=== PATIENT | male | born 1960 | race Caucasian/White ===

== ENCOUNTER 2021-07-16 19:38 | Emergency (ER) | payer SELFPAY ==
[2021-07-16] VITALS (28 sets, daily range): BP systolic 125–154; BP diastolic 66–94; PULSE 59–81; RESP 12–23; TEMP 36.6–37; O2SAT 93–100
--- NOTE | ~2021-07-16 | CT_ITS ---
EXAMINATION: CT BRAIN W/O DATE: 07/16/2021 19:57 INDICATION: Dizziness TECHNIQUE: Computed tomography (CT) of the head was performed without intravenous contrast. The dose- length product was 605.33 mGy-cm. Automated exposure control and iterative reconstruction technique w ere employed. COMPARISON: No prior studies for comparison. FINDINGS: Normal brain parenchymal volume for age. Normal smalls-white differentiation. No acute intrac ranial hemorrhage, infarction, mass or mass effect. No ventriculomegaly or midline shift. Midline sagittal images demonstrate a normal corpus callosum, c raniovertebral junction and sella turcica. Basilar cisterns are patent. Paranasal sinuses and mastoids are pneumatized. No depressed skull fractures. IMPRESSION: 1. No acute intracranial abnormality. Reviewed, dictated and finalized at location A.
--- NOTE | 2021-07-16 19:08 | ECG_ITS ---
Measurements Intervals [place] Rate: 67 P: 62 NM: 189 QRS: -27 QRSD: 121 T: 59 QT: 435 QTc: 460 Interpretive Statements SINUS RHYTHM POSSIBLE LEFT ATRIAL ENLARGEMENT RIGHT BUNDLE BRANCH BLOCK BASELINE ARTIFACT- II, III, AVR, AVF, V1-V6 ABNORMAL ECG Electronically Signed On 07-17-2021 7:46:55 CDT by Jose Lara D.O.
--- NOTE | 2021-07-16 19:20 | PC.NURSE ---
Pt reports at approx 6pm or 630 pm he was driving, and suddenly felt dizzy. c/o bilat. hand/arm numbness and left leg numbness, along with slurred speech which lasted approx 10 min. currently NO deficits noted, speech clear. all extremities independently moving without numbness/weakness/tingling. a/o x 4. reports last saw doctor 40 years ago except for when he had kidney stones approx 6 months ago.
[2021-07-16 20:07] LABS: Basophils Absolute Auto 0.1 K/mm3 (0.0-0.1); Basophils Percent Auto 0.6 % (0.2-1.2); Eosinophils Absolute Auto 0.2 K/mm3 (0-0.3); Hematocrit 45.5 % (42.0-52.0); Hemoglobin 15.1 g/dL (14.0-18.0); Immature Granulocyte Absolute 0.04 K/mm3 (0.00-0.031); Immature Granulocyte Percent A 0.4 % (0-0.5); Lymphocytes Absolute Auto 1.93 K/mm3 (0.9-3.2); Lymphocytes Percent Auto 17.9 % (18.3-44.2); Mean Corpuscular HGB Conc 33.2 g/dl (32-36); Mean Corpuscular Hemoglobin 29.5 pg (26-34); Mean Platelet Volume 11.2 fl (7.4-10.4); Monocytes Absolute Auto 0.8 K/mm3 (0.1-0.6); Monocytes Percent Auto 7.5 % (2.6-8.5); Neutrophils Absolute Auto 7.7 K/mm3 (1.3-6.7); Neutrophils Percent Auto 71.6 % (45.5-73.1); Platelet Count Result 302 k/mm3 (150-375); Red Blood Count 5.11 M/mm3 (4.6-6.20); Red Cell Distribution Width 12.7 % (11.5-14.5); White Blood Count 10.8 K/mm3 (4.5-10.0)
[2021-07-16 20:19] LABS: INR 0.9; Partial Thromboplastin Time 28.3 SECONDS (22.3-36.8)
[2021-07-16 20:30] LABS: Troponin I < 0.012 ng/mL (0.000-0.034)
[2021-07-16 20:59] LABS: Alanine Aminotransferase 21 U/L (4-50); Albumin Level 4.2 g/dL (3.5-5.1); Alkaline Phosphatase 102 U/L (38-126); Anion Gap 12 mmol/L (8-16); Aspartate Amino Transferase 22 U/L (17-59); Bilirubin,Total 0.3 mg/dL (0.2-1.3); Blood Urea Nitrogen 21 mg/dL (9-20); Calcium 9.7 mg/dL (8.4-10.2); Carbon Dioxide 27 mmol/L (22-30); Chloride 103 mmol/L (98-107); Estimated CRCL calculation 43 ml/min; Estimated Glomerular Filt Rate 41; Glucose 140 mg/dL (65-110); Magnesium 2.3 mg/dL (1.6-2.3); Potassium 3.7 mmol/L (3.4-5.0); Sodium 142 mmol/L (137-145)
--- NOTE | 2021-07-16 21:50 | ED.GENADULT ---
HPI - General Adult General Chief complaint: Dizziness Stated complaint: dizzyness History of Present Illness HPI narrative: To patient 61-year-old gentleman who presents the emergency department with chief complaint of dizziness. Patient reports that he was driving his vehicle and felt lightheaded got very sweaty and had a sensation of fullness in his neck the patient states that he noticed that his fingertips were numb on both hands and then as he was trying to use his right leg he noticed that it was a little clumsy at that time the patient did not try to move his left leg is unsure whether he had any other symptoms. The patient states that it really was more like it was numb the patient states that the symptoms lasted for approximately 1hour and the symptoms have now completely resolved at this point. The patient does report that he had intermittent episodes of dizziness for some time which he describes as a lightheaded sensation. Review of Systems Review of Systems: A 10 system review of systems was completed on the patient and is negative except for what is stated in the HPI. Nursing and ancillary documentation was reviewed. Exam Narrative: GENERAL: Well-appearing, well-nourished, and in no acute distress. HEAD: Normocephalic, atraumatic. EYES: PERRLA and EOMI. ENT: Nares clear, no rhinorrhea or epistaxis. Mucous membranes moist. NECK: Supple. CHEST: Clear to auscultation. No respiratory distress. HEART: Regular rate and rhythm. No murmur heard. Normal peripheral pulses. ABDOMEN: Soft, nontender, nondistended, normal active bowel sounds. EXTREMITIES: Normal range of motion. No edema. SKIN: Warm, dry, no rash. NEURO: No focal deficits. Alert and oriented x3. PSYCH: Normal mood and affect. Course Vital Signs Vital signs: Vital Signs Temperature 37.0 C 07/16/21 19:01 Pulse Rate 67 07/16/21 19:01 Respiratory Rate 16 07/16/21 19:01 Blood Pressure 154/82 H 07/16/21 19:01 Pulse Oximetry 100 07/16/21 19:01 Temperature 37.0 C 07/16/21 19:01 Pulse Rate 70 07/16/21 20:01 Respiratory Rate 17 07/16/21 20:01 Blood Pressure 141/80 H 07/16/21 20:01 Pulse Oximetry 98 07/16/21 20:01 Medical Decision Making Vital Signs Vital Signs: Vital Signs Temperature 37.0 C 07/16/21 19:01 Pulse Rate 67 07/16/21 19:01 Respiratory Rate 16 07/16/21 19:01 Blood Pressure 154/82 H 07/16/21 19:01 Pulse Oximetry 100 07/16/21 19:01 Temperature 37.0 C 07/16/21 19:01 Pulse Rate 70 07/16/21 20:01 Respiratory Rate 17 07/16/21 20:01 Blood Pressure 141/80 H 07/16/21 20:01 Pulse Oximetry 98 07/16/21 20:01 Lab Data Result diagrams: 07/16/21 20:01 07/16/21 20:01 Labs: Lab Results 07/16/21 07/16/21 07/16/21 Range/Units 20:01 20:01 20:01 WBC 10.8 H (4.5-10.0) K/mm3 RBC 5.11 (4.6-6.20) M/mm3 Hgb 15.1 (14.0-18.0) g/dL Hct 45.5 (42.0-52.0) % MCV 89.0 (80-100) fl MCH 29.5 (26-34) pg MCHC 33.2 (32-36) g/dl RDW 12.7 (11.5-14.5) % Plt Count 302 (150-375) k/mm3 MPV 11.2 H (7.4-10.4) fl Immature Gran % (Auto) 0.4 (0-0.5) % Neut % (Auto) 71.6 (45.5-73.1) % Lymph % (Auto) 17.9 L (18.3-44.2) % Rankin % (Auto) 7.5 (2.6-8.5) % Eos % (Auto) 2.0 (0-4.4) % Baso % (Auto) 0.6 (0.2-1.2) % Lymph # (Auto) 1.93 (0.9-3.2) K/mm3 Rankin # (Auto) 0.8 H (0.1-0.6) K/mm3 Eos # (Auto) 0.2 (0-0.3) K/mm3 Baso # (Auto) 0.1 (0.0-0.1) K/mm3 Abs Immat Gran (auto) 0.04 H (0.00-0.031) K/mm3 Absolute Neuts (auto) 7.7 H (1.3-6.7) K/mm3 Absolute Nucleated RBC 0.0 (0.0-0.012) K/mm3 Nucleated RBC % 0.0 (0.0-0.2) % PT 12.0 (11.1-14.7) Seconds INR 0.9 APTT 28.3 (22.3-36.8) SECONDS Sodium 142 (137-145) mmol/L Potassium 3.7 (3.4-5.0) mmol/L Chloride 103 (98-107) mmol/L Carbon Dioxide 27 (22-30) mmol/L Anion Gap 12 (8-16) mmol/L BUN
== END 2021-07-16 22:42 | disposition home or self-care (01) ==
LOC: ANHED 22:03
PROVIDERS: Emergency Provider Emergency Medicine
DX: R42 Dizziness and giddiness (principal); R55 Syncope and collapse; I45.10 Unspecified right bundle-branch block; R94.31 Abnormal electrocardiogram [ECG] [EKG]
CPT/HCPCS: 36415; 70450; 80053; 83735; 84484; 85025; 85610; 85730; 93005; 99284